=== PATIENT | male | born 1940 | race Caucasian/White ===

== ENCOUNTER 2023-08-30 10:38 | Day surgery (SDC) | payer MEDICARE, SELFPAY ==
--- NOTE | 2023-08-30 | PATH_ITS ---
[facility] Accession Number: [id number] No. of containers..01 Tissue . 01 Material submitted: . esophagus, E-G Junction - GE JUNCTION . 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 No goblet cell metaplasia, dysplasia, or malignancy identified. [facility] 09/01/20231338 Local . 01 Electronically signed: . Best Aviles MD, Pathologist NPI- [id number] . 01 Gross description: . Received in formalin with two patient identifiers and GE junction, are two rodriguez soft tissue fragments 0.3 to 0.6 cm in greatest dimension. Submitted in cassette A1. ([id number]) /[facility] 09/01/20231338 Local . 01 Pathologist provided ICD-10: K20.90 . 01 CPT . 556403 Specimen Comment: A courtesy copy of this report has been sent to [phone] Performed at: [address] [facility] [address], [place], [place] [id number] MD Best Aviles MD Phone: [phone]
[2023-08-30 11:07] VITALS: BP 149/72; PULSE 72; RESP 18; TEMP 36.5
--- NOTE | 2023-08-30 11:17 | PM.PREOP ---
Pre-operative Note Interval Note History & Physical reviewed/Exam performed by Physician: Yes Changes to H&P: No ASA Class (for procedural sedation): II
--- NOTE | 2023-08-30 11:18 | PM.OP.EGD ---
Operative Date/Time/Diagnoses Date of procedure: 08/30/23 Pre-op diagnosis: See indication and findings Procedure & Clinicians Study performed: EGD Indications: Cough and throat irritation without much heartburn Surgeon: Alicia Quinn Procedure Notes Procedure in detail: After informed consent was obtained the patient was placed in left lateral decubitus position. The video scope was placed into the oropharynx and passed easily into the esophagus. The esophagus stomach and duodenum were carefully examined. On withdrawal, retroflexed view the GE junction was performed. The scope was removed. The patient tolerated procedure well. Blood loss none Complications none Sedation mac Findings 1. Normal hypopharynx 2. Normal esophagus until the esophagogastric junction. Here was slightly irregular and biopsies were taken to rule out Cali's esophagus. 3. Normal stomach 4. Normal duodenal bulb and sweep Will be in touch regarding biopsies. Biopsies were performed not to be able to place him on a surveillance protocol which she probably does not need his age but instead, if Cali's confirmed, this would lead us to believe that he does have GE reflux even though he is relatively asymptomatic (other than his cough).
[2023-08-30 12:05] VITALS: BP 127/76; PULSE 70; RESP 17; TEMP 36.4; O2SAT 93
[2023-08-30 12:10] VITALS: BP 119/90; PULSE 62; RESP 19; O2SAT 94
[2023-08-30 12:14] VITALS: BP 109/65; PULSE 61; RESP 18; TEMP 36.3; O2SAT 94
--- NOTE | 2023-08-30 12:26 | PM.DS.1 ---
History of Present Illness History of Present Illness Chief complaint: [facility] Discharge Providers Provider Discharge Date: 08/30/23 Discharge provider: Alicia Quinn MD Exam Vital Signs (past 8 hours): - 08/30/23 11:07 08/30/23 12:05 08/30/23 12:10 Temperature 97.7 F 97.6 F Pulse Rate 72 70 62 Respiratory Rate 18 17 19 Blood Pressure 149/72 H 127/76 119/90 Pulse Oximetry 93 94 Oxygen Delivery Method Room Air Room Air Room Air Oxygen Flow Rate 95 08/30/23 12:14 Temperature 97.4 F L Pulse Rate 61 Respiratory Rate 18 Blood Pressure 109/65 Pulse Oximetry 94 Oxygen Delivery Method Room Air Oxygen Flow Rate Oxygen Delivery Method Room Air Oxygen Flow Rate 95 Discharge Assessment & Plan Assessment and Plan Assessment: History of GERD with cough - no esphagitis Plan of Treatment: See PMD - stay on antisecretoies for now Discharge Plan Discharge Plan Patient Disposition: Home Discharge orders & Medications Discharge Orders: Discharge (Order); Ordered 12/09/24 Ordered By: Alicia Quinn Prescriptions: Continued atorvastatin 10 mg tablet 10 mg PO DAILY Visit Report/Discharge Packet Stand Alone Forms: Patient Portal/API, EGD Result: [facility] Med Grp Print Language: [place]er Discharge Data Attending Provider: Alicia Quinn
== END 2023-08-30 12:35 | disposition home or self-care (01) ==
PROVIDERS: Referring Provider Internal Medicine Gastroenterology; Visit Provider Internal Medicine Gastroenterology
PROC: 0DJ08ZZ Inspection of Upper Intestinal Tract, Via Natural or Artificial Opening Endoscopic (ICD-10-PCS; CPT 43239; principal; 2023-08-30 11:30)
DX: R05.9 Cough, unspecified (principal); K29.50 Unspecified chronic gastritis without bleeding
CPT/HCPCS: 43239; J2704